=== PATIENT | female | born 1940 | race Caucasian/White ===

== ENCOUNTER → 2018-08-07 08:02 | Outpatient (CLI) | payer OTHER, MEDICARE, SELFPAY ==
--- NOTE | 2018-08-07 | DI.MG.S_ITS ---
BILATERAL DIGITAL SCREENING MAMMOGRAM 3D/2D WITH CAD: 08/07/2018 CLINICAL: Routine screening. Family history of breast cancer. Comparison is made to exams dated: 04/24/2015 mammogram, 12/30/2013 mammogram, and 04/02/2011 mammogram - [facility]. There are scattered fibroglandular elements in both breasts. Current study was also evaluated with a Computer Aided Detection (CAD) system. There is 0.7 cm group of heterogeneous calcifications in the right breast at 7 o'clock middle depth. This is increased in number of calcifications. No other significant masses, calcifications, or other findings are seen in either breast. IMPRESSION: INCOMPLETE: NEEDS ADDITIONAL IMAGING EVALUATION The 0.7 cm group of heterogeneous calcifications in the right breast are indeterminate. Mediolateral and spot magnification views are recommended. This exam was interpreted at Station ID: [id number]. NOTE: For mammograms, a report in lay terms will be sent to the patient. Approximately 15% of breast malignancies will not be visualized mammographically. In the management of a palpable breast mass, a negative mammogram must not discourage biopsy of a clinically suspicious lesion. Electronically Signed By: Mukesh keller/:08/07/2018 09:03:44 letter sent: Additional Imaging Needed ACR BI-RADS Category 0: Incomplete 3340F
== END ==
PROVIDERS: Family Provider Family Medicine; PCP Family Medicine; Visit Provider Student in an Organized Health Care Education/Training Program
DX: Z12.31 Encounter for screening mammogram for malignant neoplasm of breast (principal); Z80.3 Family history of malignant neoplasm of breast
CPT/HCPCS: 77063; 77067

== ENCOUNTER → 2018-08-21 09:28 | Outpatient (CLI) | payer OTHER, MEDICARE, SELFPAY ==
--- NOTE | 2018-08-21 | DI.MG.S_ITS ---
UNILATERAL RIGHT DIGITAL DIAGNOSTIC MAMMOGRAM 3D/2D WITH ADDITIONAL VIEWS: 08/21/2018 CLINICAL: Additional evaluation requested from prior study. Family history of breast cancer. Comparison is made to exams dated: 08/07/2018 mammogram, 04/24/2015 mammogram, and 12/30/2013 mammogram - [facility]. There are scattered fibroglandular elements in right breast. Previously noted 0.7 cm grouped heterogenous calcifications in the lower outer right breast at middle to posterior depth near 7:00 position seen on comparison screening mammogram persist with additional views. These calcifications have the appearance of probable vascular calcifications on magnification views and are only minimally increased in number from comparison exam of 04/24/2015, over three years prior. IMPRESSION: PROBABLY BENIGN 0.7 cm grouped heterogenous calcifications in the lower outer right breast at middle to posterior depth. A follow-up diagnostic mammogram in 6 months is recommended to demonstrate stability. These results and recommendations were discussed with the patient by telephone by Dr. Germain after the exam at approximately 10:30 am on 08/21/2018. The patient was advised to monitor the area and to return sooner for reevaluation if she feels anything grow or change in her breasts. This exam was interpreted at Station ID: [id number]. NOTE: For mammograms, a report in lay terms will be sent to the patient. Approximately 15% of breast malignancies will not be visualized mammographically. In the management of a palpable breast mass, a negative mammogram must not discourage biopsy of a clinically suspicious lesion. Electronically Signed By: Girma Germain M.D. ecl/:08/21/2018 13:39:40 letter sent: Followup Recommended ACR BI-RADS Category 3: Probably benign [id number]
== END ==
PROVIDERS: PCP Student in an Organized Health Care Education/Training Program; Visit Provider Student in an Organized Health Care Education/Training Program
DX: R92.1 Mammographic calcification found on diagnostic imaging of breast (principal); Z80.3 Family history of malignant neoplasm of breast
CPT/HCPCS: 77065; G0279

== ENCOUNTER → 2018-08-25 09:57 | Outpatient (CLI) | payer OTHER, MEDICARE, SELFPAY ==
[2018-08-25 10:38] LABS: Alanine Aminotransferase 25 IU/L (9-52); Albumin 4.4 g/dL (3.5-5.0); Albumin Globulin Ratio 1.4 (1.0-2.8); Alkaline Phosphatase 83 U/L (38-126); Aspartate Aminotransferase 19 IU/L (14-36); Bilirubin Total 1.8 mg/dL (0.2-1.3); Blood Urea Nitrogen 16 mg/dL (7-17); Calcium 9.5 mg/dL (8.4-10.2); Carbon Dioxide 28 mmol/L (22-32); Chloride 105 mmol/L (98-107); Cholesterol 250 mg/dL (140-199); Estimated Glomerular Filt Rate > 60.0 mL/min (>60); Globulin 3.1 g/dL (1.7-4.1); Glucose 101 mg/dL (80-110); HDL Cholesterol 77 mg/dL (40-60); HEMOLYSIS < 15 (0-50); LDL Cholesterol Calculated 156 mg/dL (<100); Sodium 140 mmol/L (137-145); Total Protein 7.5 g/dL (6.3-8.2); Triglycerides 87 mg/dL (35-150)
[2018-08-25 11:21] LABS: TSH w/ Reflex to FT4 0.95 uIU/mL (0.47-4.68)
== END ==
PROVIDERS: PCP Student in an Organized Health Care Education/Training Program; Visit Provider Student in an Organized Health Care Education/Training Program
DX: Z13.220 Encounter for screening for lipoid disorders (principal); Z13.228 Encounter for screening for other metabolic disorders
CPT/HCPCS: 36415; 80053; 80061; 84443

== ENCOUNTER → 2018-09-01 14:35 | Outpatient (CLI) | payer OTHER, MEDICARE, SELFPAY | PROVIDERS: PCP Student in an Organized Health Care Education/Training Program; Visit Provider Student in an Organized Health Care Education/Training Program | DX: M85.852 Other specified disorders of bone density and structure, left thigh (principal); Z78.0 Asymptomatic menopausal state; F17.200 Nicotine dependence, unspecified, uncomplicated | CPT/HCPCS: 77080 ==

== ENCOUNTER → 2019-03-29 10:25 | Outpatient (CLI) | payer OTHER, MEDICARE, SELFPAY ==
--- NOTE | 2019-03-29 | DI.RAD.S_ITS ---
PROCEDURE: XR CHEST 2V INDICATIONS: Acute bronchitis, unspecified TECHNIQUE: 2 views of the chest were acquired. COMPARISON: None. FINDINGS: Surgical changes and devices: None. Lungs and pleura: Lungs are clear. No pleural effusions or pneumothorax. Mediastinum: Mediastinal contours are normal. Heart size is normal. Bones and chest wall: Age related degenerative changes of the thoracic spine. No suspicious bony abnormalities. Soft tissues appear unremarkable. IMPRESSION: Chest without acute cardiopulmonary abnormalities. No focal consolidations. Dictated by: Mukesh Ryan M.D. on 03/29/2019 at 12:46 Approved by: Mukesh Ryan M.D. on 03/29/2019 at 12:47
== END ==
PROVIDERS: PCP Student in an Organized Health Care Education/Training Program; Visit Provider Student in an Organized Health Care Education/Training Program
DX: J20.9 Acute bronchitis, unspecified (principal)
CPT/HCPCS: 71046

== ENCOUNTER 2019-05-11 19:21 | Emergency (ER) | payer OTHER, MEDICARE, SELFPAY ==
[2019-05-11 19:36] VITALS: BP 149/104; PULSE 94; RESP 18; TEMP 38.3; O2SAT 93; BMI 22.8
--- NOTE | 2019-05-11 19:39 | ED_ITS ---
HPI - URI/Sore Throat General Chief Complaint: Upper Respiratory Symptoms Stated Complaint: weakness,fever,chills Time Seen by Provider: 05/11/19 19:39 Source: patient Mode of arrival: Family Vehicle Limitations: no limitations History of Present Illness HPI Narrative: This is a 78-year-old female comes to the emergency department with complaint of fever, nasal congestion, cough that has been nonproductive. Patient denies shortness of breath or chest pain or pressure. She has had teary eyes. She has not had any nausea, no vomiting, no abdominal pain, no diarrhea. Patient states she has not a bowel movement about 3 days but she is passing gas regularly. She states that is a little bit less frequency than normal. She has had frequency but states she is drinking a lot of water because she has felt sick for the last 3 days. She denies urgency, dysuria, hematuria. She denies any swelling in her lower extremities. patient states that her flu shot was about 3 weeks ago and she felt ill afterwards. She also had an exposure to her grandson who tested positive for influenza and she states was coughing face in the last week. She has had 3 days of symptoms with fevers each day. She states she took some prescription cough medicine earlier this morning which appears to be promethazine with codeine from her prior MAR. Patient denies any other past medical issues, she does smoke tobacco states she quit smoking 3 days ago could she has felt so poorly. 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 Otherwise she states she has had some dental surgeries and cataract surgery but no other surgical history. She is allergic to penicillin and latex. Eunice Shafer is her PCP. Related Data Previous Rx's Medication Instructions Recorded azithromycin 250 mg tablet See Rx Instructions PO .COMPLEX #6 11/28/17 tab promethazine 6.25 mg-codeine 10 5 ml PO Q6H PRN #118 ml 11/28/17 mg/5 mL syrup oseltamivir [Tamiflu] 75 mg PO BID #9 cap 05/11/19 Allergies Allergy/AdvReac Type Severity Reaction Status Date / Time latex Allergy Unknown Verified 05/11/19 20:08 Penicillins Allergy Unknown Verified 05/11/19 20:08 Review of Systems Review of Systems ROS Unobtainable: All systems reviewed & are unremarkable except as noted in HPI and below Patient History Medical History Tobacco abuse (Acute) Surgical History Status post surgery (04/23/11) Social History Smoking Status: Current every day smoker Substance Use Type: does not use Exam Narrative Exam Narrative: GEN: well nourished, well appearing elderly female, alert and oriented x 3, patient appears to be in mild distress. HEENT: Atraumatic, pupils are equal round reactive to light, no conjunctival injection, patient is slightly teary, extraocular movements are intact, nares show clear rhinorrhea bilaterally, TMs are clear with no fluid, there is no conjunctival pallor. Throat is slightly erythematous without any exudates, tonsillar enlargement or uvular deviation, no meningeal with full range of motion. HEART: Regular rate and rhythm without murmur, clicks, rubs. Pulses are equal in upper and lower extremities LUNGS:Lungs equal bilaterally patient has rhonchi bilaterally with a harsh cough,, no wheezes, no crackles, chest moves symmetrically, no tachypnea or accessory muscle use. ABD:bowel sounds normal, soft, non-tender, no guarding, rebound, rigidity, no masses noted, no hepatosplenomegaly :No CVA tenderness MSCL: Non-tender, no muscle atrophy, muscles strength 5/5 upper and lower extremities, full range of motion, normal gait NEURO:CN 2-12 intact, sensation normal SKIN: No erythema, no petechiae, no rash noted. Initial Vital Signs Initial Vital Signs: Vital Signs Temperature 100.9 F H 05/11/19 19:36 Pulse Rate 94 H 05/11/19 19:36 Respiratory Rate 18 05/11/19 19:36 Blood Pressure 149/104 H 05/11/19 19:36 Pulse Oximetry 93 05/11/19 19:36 Scores qSOFA Altered Mental Status (GCS <15): No Respiratory rate greater than/equal to 22: No Systolic blood pressure less than or equal to 100: No qSOFA Total: 0 0-1 Not High Risk 1-3 High risk Course Orders Ordered: ED Orders 05/11/19 19:30 Flu test [Influenza A & B (PCR)] Stat 05/11/19 19:50 Basic Metabolic Panel Stat Complete Blood Count AUTO DIFF Stat 05/11/19 19:54 Urine Culture Stat Urine Microscopic Stat 05/11/19 20:05 XR chest 2V Stat Discontinued Medications Acetaminophen (Tylenol) 975 mg PO NOW ONE Stop: 05/11/19 20:07 Last Admin: 05/11/19 20:09 Dose: 975 mg Documented by: AMANDO Sodium Chloride (Normal Saline 0.9%) 1,000 mls @ 1,000 mls/hr IV BOLUS ONE Stop: 05/11/19 21:05 Last Infusion: 05/11/19 20:56 Dose: 1,000 mls/hr Documented by: Admin: 05/11/19 20:09 Dose: 1,000 mls/hr Documented by: AMANDO Oseltamivir Phosphate (Tamiflu) 75 mg PO NOW ONE Stop: 05/11/19 20:45 Last Admin: 05/11/19 20:47 Dose: 75 mg Documented by: AMANDO Vital Signs Vital signs: Vital Signs - 8 hr 05/11/19 19:36 05/11/19 20:09 05/11/19 20:40 Temperature 100.9 F H 100.9 F H 100.2 F H Pulse Rate 94 H Respiratory Rate 18 Blood Pressure 149/104 H Pulse Oximetry 93 05/11/19 20:50 Temperature Pulse Rate 86 Respiratory Rate 15 Blood Pressure 110/65 Pulse Oximetry 93 MDM - URI/Sore Throat Lab Data Attestation: I reviewed the patient's lab results. Result diagrams: 05/11/19 19:50 05/11/19 19:50 Labs: Lab Results 05/11/19 05/11/19 05/11/19 Range/Units 19:30 19:50 19:50 WBC 8.3 (4.5-11.0) X10^3/uL RBC 5.01 (4.0-5.2) X10^6/uL Hgb 15.2 (12.0-16.0) g/dL Hct 45.6 (36-46) % MCV 91.1 (80-100) fL MCH 30.3 (26-34) PG MCHC 33.3 (30-36) % RDW 13.4 (11.6-14.8) % Plt Count 186 (150-400) X10^3/uL Neut % (Auto) 84.2 H (50-75) % Lymph % (Auto) 7.6 L (25-40) % Wood % (Auto) 7.7 (3-14) % Eos % (Auto) 0.1 L (2-4) % Baso % (Auto) 0.4 (0-2) % Neut # (Auto) 7000 (4313-8044) /uL Lymph # (Auto) 600 L (2592-3407) /uL Wood # (Auto) 600 (0-900) /uL Eos # (Auto) 0 (0-450) /uL Baso # (Auto) 0 (0-100) /uL Sodium 136 L (137-145) mmol/L Potassium 3.7 (3.4-5.1) mmol/L Chloride 102 (98-107) mmol/L Carbon Dioxide 24 (22-32) mmol/L BUN 15 (7-17) mg/dL Creatinine 0.80 (0.52-1.04) mg/dL Estimated GFR > 60.0 (>60) mL/min BUN/Creatinine Ratio 18.8 (6-22) Glucose 103 (80-110) mg/dL Calcium 9.2 (8.4-10.2) mg/dL Urine RBC (0-5/HPF) Urine WBC (0-5/HPF) Ur Squamous Epith Cells (0-5/HPF) Amorphous Sediment Urine Bacteria (None) Urine Mucus (Negative) Ur Culture Indicated? Influenza A (RT-PCR) Flu a negative (NEGATIVE) Influenza B (RT-PCR) Flu b positive H (NEGATIVE) 05/11/19 Range/Units 19:54 WBC (4.5-11.0) X10^3/uL RBC (4.0-5.2) X10^6/uL Hgb (12.0-16.0) g/dL Hct (36-46) % MCV (80-100) fL MCH (26-34) PG MCHC (30-36) % RDW (11.6-14.8) % Plt Count (150-400) X10^3/uL Neut % (Auto) (50-75) % Lymph % (Auto) (25-40) % Wood % (Auto) (3-14) % Eos % (Auto) (2-4) % Baso % (Auto) (0-2) % Neut # (Auto) (5520-5084) /uL Lymph # (Auto) (2460-7131) /uL Wood # (Auto) (0-900) /uL Eos # (Auto) (0-450) /uL Baso # (Auto) (0-100) /uL Sodium (137-145) mmol/L Potassium (3.4-5.1) mmol/L Chloride (98-107) mmol/L Carbon Dioxide (22-32) mmol/L BUN (7-17) mg/dL Creatinine (0.52-1.04) mg/dL Estimated GFR (>60) mL/min BUN/Creatinine Ratio (6-22) Glucose (80-110) mg/dL Calcium (8.4-10.2) mg/dL Urine RBC 1-5/hpf (0-5/HPF) Urine WBC 5-10/hpf H (0-5/HPF) Ur Squamous Epith Cells 5-10 /hpf H (0-5/HPF) Amorphous Sediment 1+ Urine Bacteria Moderate (10-30) H (None) Urine Mucus 1+ H (Negative) Ur Culture Indicated? Specimen cultured Influenza A (RT-PCR) (NEGATIVE) Influenza B (RT-PCR) (NEGATIVE) Urine Dip Bedside Urine Glucose Negative Bedside Urine Bilirubin - Negative Bedside Urine Ketone +++ 80 Urine Specific [place] 1.025 Bedside Urine Occult Blood ++ Bedside Urine pH 5.5 Bedside Urine Protein +/- 15 Bedside Urine Urobilinogen - Negative Bedside Urine Nitrite - Negative Bedside Urine Leukocytes - Negative Esterase Imaging Data Chest x-ray: Radiologist's impression: [address] [id number] XRay Report Signed Patient: Fatemeh Vargas LMR#: [id number] : 3Acct:[id number] Age/Sex: 78 / FDate of Service: 05/11/19 Loc: ED Accession Number: [id number] Procedure: XR chest 2V Ordering Provider: Sangeeta Huynh D.O. PROCEDURE: XR CHEST 2V INDICATIONS: fever, rhonchi, flu exposure TECHNIQUE: 2 views of the chest were acquired. COMPARISON: [facility], [place], XR CHEST 2V, 03/29/2019, 10:26. FINDINGS: Surgical changes and devices: None. Lungs and pleura: Lungs are clear. No pleural effusions or pneumothorax. Mediastinum: Mediastinal contours are normal. Heart size is normal. Bones and chest wall: No suspicious bony abnormalities. Soft tissues appear unremarkable. IMPRESSION: No acute cardiopulmonary disease. Dictated by: Sandra Aguirre M.D. on 05/11/2019 at 20:25 Approved by: Sandra Aguirre M.D. on 05/11/2019 at 20:26 [facility] Narrative Medical decision making narrative: The patient is positive for influenza B, she is on the edge of timing for Tamiflu to be affective and was offered and she accepted. We discussed signs and symptoms to watch for reasons to return emergently. Patient technically meets SIRS criteria initially although her temperature was improved as well as her heart rate. She had a negative chest x- ray and lab work does not show major abnormalities. Patient feels comfortable returning home. Discharge Plan Departure Patient Disposition: Home Clinical Impression: Influenza B Discharge Date/Time: 05/11/19 20:50 Instructions: Influenza Activity Restrictions/Additional Instructions: Follow up with primary care in the next 5-7 days if no improvement. You may take Tamiflu as prescribed, take twice daily x 5 days. Your prescription was sent to [facility]. Return to the ER for fevers that do not respond to Tylenol and ibuprofen, new shortness of breath, chest pain, lightheadedness or passing out, persistent vomiting, new swelling in her lower extremities or other new or concerning symptoms. Prescriptions: New oseltamivir [Tamiflu] 75 mg capsule 75 mg PO BID Qty: 9 RF: 0 No Action promethazine-codeine 6.25-10 mg/5 mL syrup 5 ml PO Q6H PRN (Reason: cough) Qty: 118 RF: 0 azithromycin 250 mg tablet See Rx Instructions PO .COMPLEX Qty: 6 RF: 0 Referrals: Eunice Shafer PA-C [Primary Care Provider] -
[2019-05-11 20:04] LABS: RBC Urine 1-5/HPF (0-5/HPF); Squamous Epithelial Cell Urine 5-10 /HPF (0-5/HPF); WBC Urine 5-10/HPF (0-5/HPF)
[2019-05-11 20:05] LABS: Amorphous Sediment Urine 1+; Bacteria Urine Moderate (10-30); Culture Indicated Urine Specimen Cultured; Mucus Urine 1+ (Negative)
--- NOTE | 2019-05-11 20:05 | DI.RAD.S_ITS ---
PROCEDURE: XR CHEST 2V INDICATIONS: fever, rhonchi, flu exposure TECHNIQUE: 2 views of the chest were acquired. COMPARISON: [facility], [place], XR CHEST 2V, 03/29/2019, 10:26. FINDINGS: Surgical changes and devices: None. Lungs and pleura: Lungs are clear. No pleural effusions or pneumothorax. Mediastinum: Mediastinal contours are normal. Heart size is normal. Bones and chest wall: No suspicious bony abnormalities. Soft tissues appear unremarkable. IMPRESSION: No acute cardiopulmonary disease. Dictated by: Sandra Aguirre M.D. on 05/11/2019 at 20:25 Approved by: Sandra Aguirre M.D. on 05/11/2019 at 20:26
[2019-05-11 20:09] VITALS: TEMP 38.3
[2019-05-11] MEDS: SODIUM CHLORIDE 0.9% 1,000 ML 1000 ML IV (20:09)
[2019-05-11] MEDS: ACETAMINOPHEN 325 MG TABLET 975 MG PO (20:09)
[2019-05-11 20:13] LABS: Add Manual Diff / Slide Review NO; Basophils Absolute Auto 0 /uL (0-100); Basophils Percent Auto 0.4 % (0-2); Eosinophils Absolute Auto 0 /uL (0-450); Eosinophils Percent Auto 0.1 % (2-4); Hematocrit 45.6 % (36-46); Hemoglobin 15.2 g/dL (12.0-16.0); Lymphocytes Absolute Auto 600 /uL (1100-4500); Lymphocytes Percent Auto 7.6 % (25-40); Mean Corpuscular HGB Conc 33.3 % (30-36); Mean Corpuscular Hemoglobin 30.3 PG (26-34); Mean Corpuscular Volume 91.1 fL (80-100); Monocytes Absolute Auto 600 /uL (0-900); Monocytes Percent Auto 7.7 % (3-14); Neutrophils Absolute Auto 7000 /uL (1500-7000); Neutrophils Percent Auto 84.2 % (50-75); Platelet Count 186 X10^3/uL (150-400); Red Blood Cell Count 5.01 X10^6/uL (4.0-5.2); Red Cell Distribution Width 13.4 % (11.6-14.8); White Blood Cell Count 8.3 X10^3/uL (4.5-11.0)
[2019-05-11 20:19] LABS: BUN Creatinine Ratio 18.8 (6-22); Blood Urea Nitrogen 15 mg/dL (7-17); Calcium 9.2 mg/dL (8.4-10.2); Carbon Dioxide 24 mmol/L (22-32); Chloride 102 mmol/L (98-107); Estimated Glomerular Filt Rate > 60.0 mL/min (>60); Glucose 103 mg/dL (80-110); HEMOLYSIS < 15 (0-50); Potassium 3.7 mmol/L (3.4-5.1); Sodium 136 mmol/L (137-145)
[2019-05-11 20:31] LABS: Influenza A - CEPHEID Flu A NEGATIVE (NEGATIVE); Influenza B - CEPHEID Flu B POSITIVE (NEGATIVE)
[2019-05-11 20:40] VITALS: TEMP 37.9
[2019-05-11] MEDS: OSELTAMIVIR 75 MG CAPSULE PO (20:47)
[2019-05-11 20:50] VITALS: BP 110/65; PULSE 86; RESP 15; O2SAT 93
== END 2019-05-11 20:50 | disposition home or self-care (01) ==
PROVIDERS: Emergency Provider Emergency Medicine; PCP Student in an Organized Health Care Education/Training Program
DX: J10.1 Influenza due to other identified influenza virus with other respiratory manifestations (principal); Z72.0 Tobacco use
CPT/HCPCS: 71046; 80048; 81003; 81015; 85025; 87086; 87502; 96360; 99283; 99284